=== PATIENT | female | born 1965 | race Two or more races ===

== ENCOUNTER 2024-03-02 13:57 | Outpatient (CLI) | payer BC, SELFPAY ==
[2024-03-01 18:40] LABS: Basophils # 0.1 K/mm3 (0-0.2); Basophils % 1.4 % (0.1-2.0); Eosinophils # 0.1 K/mm3 (0.0-0.4); Eosinophils % 2.1 % (0.1-12.0); Hemoglobin 14.8 g/dL (12.2-16.2); Lymphocytes # 1.9 K/mm3 (0.7-4.5); Lymphocytes % 36.4 % (10-50); Mean Corpuscular HGB Conc 32.3 g/dL (31.8-35.4); Mean Corpuscular Hemoglobin 32.7 pg (27.0-31.2); Mean Corpuscular Volume 101.2 fl (81-99); Mean Platelet Volume 9.3 fl (7.4-10.4); Monocytes # 0.3 K/mm3 (0.1-1.0); Monocytes % 6.3 % (1.7-9.3); Neutrophils # 2.8 K/mm3 (1.8-7.8); Neutrophils % 53.8 % (37.0-80.0); Platelet Count 268 K/mm3 (142-424); Red Blood Count 4.55 M/mm3 (4.20-5.40); Red Cell Distribution Width 13.1 % (11.5-17.5); White Blood Count 5.1 K/mm3 (4.8-10.8)
[2024-03-01 18:53] LABS: Alanine Aminotransferase 34 U/L (12-78); Albumin Level 4.5 g/dl (3.5-5.0); Albumin/Globulin Ratio 1.7 (1.1-1.8); Alkaline Phosphatase 105 U/L (38-126); Anion Gap 10.5 mEq/L (5-15); Aspartate Amino Transferase 36 U/L (14-36); Bilirubin,Total 0.8 mg/dl (0.2-1.3); Blood Urea Nitrogen 8 mg/dl (7-17); Calcium 9.7 mg/dl (8.4-10.2); Carbon Dioxide 25 mmol/L (22.0-30.0); Chloride 108 mmol/L (98-107); Chol/HDL Ratio 4.5 (1-3.5); Cholesterol 171 mg/dl (140-200); Estimated Glomerular Filt Rate 86 ml/min (>60); GFR (African American) 104 ML/MIN (>60); Globulin 2.7 g/dL (1.3-3.2); Glucose 95 mg/dl (74-100); HDL Cholesterol 38 mg/dl (40-60); Potassium 4.5 mmoL/L (3.5-5.1); Sodium 139 mmol/L (136-145); Total Protein,Serum 7.2 g/dl (6.3-8.2); Triglycerides 92 mg/dl (30-150); VLDL Cholesterol 18 mg/dL (0-40)
[2024-03-01 19:03] LABS: Direct LDL Cholesterol 91.43 mg/dL (100-129); Free T4 (Free Thyroxine) 1.03 ng/dl (0.78-2.19)
[2024-03-01 19:04] LABS: 25-OH Vitamin D, Total 48.9 ng/mL (30-100)
[2024-03-01 19:42] LABS: Hemoglobin A1C 5.3 % (4.0-6.0)
[2024-03-01 19:42] LABS: Vitamin B12 542 pg/mL (239-931)
[2024-03-01 20:14] LABS: Thyroid Stimulating Hormone 1.51 uIU/mL (0.465-4.68)
== END 2024-03-02 23:59 | disposition home or self-care (01) ==
LOC: LAB.DROPOF 13:58
PROVIDERS: PCP Nurse Practitioner; Visit Provider Nurse Practitioner
DX: E78.49 Other hyperlipidemia (principal); Z13.29 Encounter for screening for other suspected endocrine disorder; Z13.1 Encounter for screening for diabetes mellitus; E66.9 Obesity, unspecified; Z68.36 Body mass index [BMI] 36.0-36.9, adult; M25.561 Pain in right knee
CPT/HCPCS: 80053; 80061; 82306; 82607; 83036; 84439; 84443; 85025

== ENCOUNTER 2024-05-04 14:43 | Outpatient (CLI) | payer BC, SELFPAY ==
[2024-05-03 19:39] LABS: Alanine Aminotransferase 48 U/L (12-78); Albumin Level 4.6 g/dl (3.5-5.0); Albumin/Globulin Ratio 1.6 (1.1-1.8); Alkaline Phosphatase 116 U/L (38-126); Anion Gap 14.5 mEq/L (5-15); Aspartate Amino Transferase 35 U/L (14-36); Bilirubin,Total 0.6 mg/dl (0.2-1.3); Blood Urea Nitrogen 10 mg/dl (7-17); Calcium 9.6 mg/dl (8.4-10.2); Carbon Dioxide 26 mmol/L (22.0-30.0); Chloride 105 mmol/L (98-107); Estimated Glomerular Filt Rate 74 ml/min (>60); GFR (African American) 89 ML/MIN (>60); Globulin 2.8 g/dL (1.3-3.2); Glucose 93 mg/dl (74-100); Potassium 4.5 mmoL/L (3.5-5.1); Sodium 141 mmol/L (136-145); Total Protein,Serum 7.4 g/dl (6.3-8.2)
== END 2024-05-04 23:59 | disposition home or self-care (01) ==
LOC: LAB.DROPOF 14:44
PROVIDERS: PCP Nurse Practitioner; Visit Provider Nurse Practitioner
DX: E78.5 Hyperlipidemia, unspecified (principal); E66.9 Obesity, unspecified; Z68.34 Body mass index [BMI] 34.0-34.9, adult
CPT/HCPCS: 80053

== ENCOUNTER 2024-08-10 19:12 | Outpatient (CLI) | payer BC, SELFPAY ==
[2024-08-10 18:24] LABS: Basophils % 0.7 % (0.1-2.0); Eosinophils # 0.2 K/mm3 (0.0-0.4); Eosinophils % 2.9 % (0.1-12.0); Hematocrit 45.2 % (37.0-47.0); Hemoglobin 14.4 g/dL (12.2-16.2); Lymphocytes # 1.8 K/mm3 (0.7-4.5); Lymphocytes % 31.8 % (10-50); Mean Corpuscular HGB Conc 31.7 g/dL (31.8-35.4); Mean Corpuscular Hemoglobin 32.4 pg (27.0-31.2); Mean Corpuscular Volume 101.9 fl (81-99); Mean Platelet Volume 7.9 fl (7.4-10.4); Monocytes # 0.3 K/mm3 (0.1-1.0); Monocytes % 4.8 % (1.7-9.3); Neutrophils # 3.4 K/mm3 (1.8-7.8); Neutrophils % 59.8 % (37.0-80.0); Platelet Count 297 K/mm3 (142-424); Red Blood Count 4.44 M/mm3 (4.20-5.40); Red Cell Distribution Width 13.6 % (11.5-17.5); White Blood Count 5.6 K/mm3 (4.8-10.8)
[2024-08-10 19:00] LABS: Alanine Aminotransferase 33 U/L (12-78); Albumin Level 4.4 g/dl (3.5-5.0); Albumin/Globulin Ratio 1.4 (1.1-1.8); Alkaline Phosphatase 108 U/L (38-126); Anion Gap 11.7 mEq/L (5-15); Aspartate Amino Transferase 29 U/L (14-36); Bilirubin,Total 0.6 mg/dl (0.2-1.3); Blood Urea Nitrogen 9 mg/dl (7-17); Calcium 9.8 mg/dl (8.4-10.2); Carbon Dioxide 25 mmol/L (22.0-30.0); Chloride 105 mmol/L (98-107); Chol/HDL Ratio 5.4 (1-3.5); Cholesterol 207 mg/dl (140-200); Estimated Glomerular Filt Rate 74 ml/min (>60); GFR (African American) 89 ML/MIN (>60); Globulin 3.1 g/dL (1.3-3.2); Glucose 79 mg/dl (74-100); HDL Cholesterol 38 mg/dl (40-60); Potassium 4.7 mmoL/L (3.5-5.1); Sodium 137 mmol/L (136-145); Total Protein,Serum 7.5 g/dl (6.3-8.2); Triglycerides 133 mg/dl (30-150); VLDL Cholesterol 27 mg/dL (0-40)
[2024-08-10 19:12] LABS: Direct LDL Cholesterol 131.91 mg/dL (100-129)
[2024-08-10 19:17] LABS: Free T4 (Free Thyroxine) 1.42 ng/dl (0.78-2.19)
[2024-08-10 19:31] LABS: Thyroid Stimulating Hormone 1.21 uIU/mL (0.465-4.68)
[2024-08-10 19:50] LABS: Vitamin B12 541 pg/mL (239-931)
[2024-08-10 20:17] LABS: Hemoglobin A1C 5.1 % (4.0-6.0)
== END 2024-08-10 23:59 | disposition home or self-care (01) ==
LOC: LAB.DROPOF 19:12
PROVIDERS: PCP Nurse Practitioner; Visit Provider Nurse Practitioner
DX: E78.5 Hyperlipidemia, unspecified (principal); E66.9 Obesity, unspecified; Z68.30 Body mass index [BMI] 30.0-30.9, adult
CPT/HCPCS: 80050; 80053; 80061; 82306; 82607; 83036; 84439; 84443; 85025

== ENCOUNTER 2024-11-21 13:00 | Outpatient (CLI) | payer BC, SELFPAY ==
[2024-11-21 19:57] LABS: Alanine Aminotransferase 26 U/L (12-78); Albumin Level 4.8 g/dl (3.5-5.0); Albumin/Globulin Ratio 1.8 (1.1-1.8); Alkaline Phosphatase 115 U/L (38-126); Anion Gap 12.4 mEq/L (5-15); Aspartate Amino Transferase 30 U/L (14-36); Bilirubin,Total 1.1 mg/dl (0.2-1.3); Blood Urea Nitrogen 8 mg/dl (7-17); Carbon Dioxide 24 mmol/L (22.0-30.0); Chloride 104 mmol/L (98-107); Chol/HDL Ratio 5.2 (1-3.5); Cholesterol 208 mg/dl (140-200); Estimated Glomerular Filt Rate 74 ml/min (>60); GFR (African American) 89 ML/MIN (>60); Globulin 2.6 g/dL (1.3-3.2); Glucose 77 mg/dl (74-100); HDL Cholesterol 40 mg/dl (40-60); Potassium 4.4 mmoL/L (3.5-5.1); Sodium 136 mmol/L (136-145); Total Protein,Serum 7.4 g/dl (6.3-8.2); Triglycerides 152 mg/dl (30-150); VLDL Cholesterol 30 mg/dL (0-40)
[2024-11-21 20:26] LABS: Thyroid Stimulating Hormone 0.12 uIU/mL (0.465-4.68)
== END 2024-11-21 23:59 | disposition home or self-care (01) ==
LOC: LAB.DROPOF 11-23 13:01
PROVIDERS: PCP Nurse Practitioner; Visit Provider Nurse Practitioner
DX: E78.5 Hyperlipidemia, unspecified (principal); E66.3 Overweight; Z68.28 Body mass index [BMI] 28.0-28.9, adult
CPT/HCPCS: 80053; 80061; 84443

== ENCOUNTER 2025-02-14 19:44 | Outpatient (CLI) | payer BC, SELFPAY ==
[2025-02-14 21:06] LABS: Free T4 (Free Thyroxine) 1.47 ng/dl (0.78-2.19)
[2025-02-14 21:20] LABS: Thyroid Stimulating Hormone 0.05 uIU/mL (0.465-4.68)
[2025-02-16 03:36] LABS: Triiodothyronine (T3) Total 114 ng/dL (71-180)
== END 2025-02-14 23:59 | disposition home or self-care (01) ==
LOC: LAB.DROPOF 19:45
PROVIDERS: PCP Nurse Practitioner; Visit Provider Nurse Practitioner
DX: R79.89 Other specified abnormal findings of blood chemistry (principal)
CPT/HCPCS: 84439; 84443; 84480; 84481

== ENCOUNTER 2025-05-16 12:30 | Outpatient (CLI) | payer BC, SELFPAY ==
[2025-05-16 19:10] LABS: Alanine Aminotransferase 22 U/L (12-78); Albumin Level 4.6 g/dl (3.5-5.0); Albumin/Globulin Ratio 1.8 (1.1-1.8); Alkaline Phosphatase 112 U/L (38-126); Anion Gap 10.7 mEq/L (5-15); Aspartate Amino Transferase 26 U/L (14-36); Bilirubin,Total 0.8 mg/dl (0.2-1.3); Blood Urea Nitrogen 8 mg/dl (7-17); Calcium 10.1 mg/dl (8.4-10.2); Carbon Dioxide 28 mmol/L (22.0-30.0); Chloride 101 mmol/L (98-107); Estimated Glomerular Filt Rate 86 ml/min (>60); GFR (African American) 104 ML/MIN (>60); Globulin 2.6 g/dL (1.3-3.2); Glucose 82 mg/dl (74-100); Potassium 4.7 mmoL/L (3.5-5.1); Sodium 135 mmol/L (136-145); Total Protein,Serum 7.2 g/dl (6.3-8.2)
[2025-05-16 19:25] LABS: Free T4 (Free Thyroxine) 1.19 ng/dl (0.78-2.19)
[2025-05-16 19:38] LABS: Thyroid Stimulating Hormone 1.22 uIU/mL (0.465-4.68)
--- OUTSIDE RECORDS SUMMARY | 2025-05-17 12:28 | XMS_ITS | Clinical Summary ---
Author Organization [facility] Address [address] [place] [address] Phone Care Team Providers Care Manager Servicing Name Role Phone Saurav Martin MD Primary Care Provider + [phone] Allergies No known active allergies Medications * This document contains information received from the source organization and may not represent a complete record from that organization. diclofenac (VOLTAREN) 75 mg Oral Tablet, Delayed Release (E.C.) Take 1 Tablet by mouth 2 times daily as needed. Take 1 tablet by mouth twice daily as needed 60 Tablet 2 4 Active omeprazole (PRILOSEC) 40 mg Oral Capsule, Delayed Release(E.C.) Take 40 mg by mouth daily. 4 Active ZEPBOUND 10 mg/0.5 mL SubQ Pen Injector ADMINISTER 10 MG UNDER THE SKIN EVERY WEEK 5 Active estradiol-norethi ndrone (ACTIVELLA) 1-0.5 mg Oral TabletIndications :Well woman exam with routine gynecological exam Take 1 Tablet by mouth daily. 30 Tablet 11 5 Active Active Problems Problem Noted Date Diagnosed Date Osteoarthritis of right knee 05/23/2024 Cervical spinal stenosis 06/25/2021 Cervical spondylosis 06/25/2021 DDD (degenerative disc disease), cervical 2020 Neck pain 05/19/2021 Cervical radiculopathy 05/19/2021 GERD (gastroesophageal reflux disease) 8 Colon cancer screening 01/05/2018 Achilles tendonitis 07/22/2012 GERD (gastroesophageal reflux disease) 1 Immunizations Immunization Administration Dates Next Due Influenza Nasal, Unspecified Formulation 015 Influenza Patient Reported 08/30/2024,09/20/2014 ,08/29/2013 Influenza Vaccine, Unspecified Formulation 09/26 MMR 10/16/2014 Pfizer SARS-CoV-2 Vaccine 12 + Yrs (Purple Cap) 01/30/2021 Tdap 10/16/2014 Surgical History Surgery Date Site/Laterality Comments UPPER GASTROINTESTINAL ENDOSCOPY KNEE SURGERY 11/22/2000 - 11/21/2001 Left knee reconstruction COSMETIC SURGERY bump on eye removed UPPER GASTROINTESTINAL ENDOSCOPY 01/05/2018 N/A ESOPHAGOGASTRODUODENOSCOP Y with biopsy via forceps and COLONOSCOPY with polypectomy via hot snare; Surgeon: Jack Mascorro MD; Location: [facility]; Service: Endoscopy COLONOSCOPY 01/05/2018 N/A Surgeon: Jack Mascorro MD; Location: [facility]; Service: Endoscopy JOINT REPLACEMENT 11/22/2023 - 11/21/2024 Right Medical History Medical History Date Comments Heartburn Colon cancer screening 01/05/2018 GERD (gastroesophageal reflux disease) Family History Medical History Relation Name Comments Diabetes Father Simba Mares Breast Cancer Maternal Aunt 1 Sharri Klein Cancer Mother Monserrat Klein High Blood Pressure Mother Monserrat Klein Arthritis Paternal Aunt Anika Mares Diabetes Paternal Uncle Ross Mares Arthritis Sister Maria D Hernandez Diabetes Sister Maria D Hernandez Relation Name Status Comments Father Simba Mares Maternal Aunt 1 Harrell Klein Maternal Aunt 2 Alive Maternal Aunt 3 Alive Maternal Aunt 4 Alive Mother Monserrat Klein Paternal Aunt Anika Mares Paternal Uncle Ross Mares Sister Maria D Hernandez Social History Tobacco Use Types Packs/Day Years Used Date Smoking Tobacco: Former Cigarettes Q uit: 11/22/1986 Smokeless Tobacco: Never Alcohol Use Standard Drinks/Week Comments Yes 1 (1 standard drink = 0.6 oz pur e alcohol) social PHQ-2 Answer Date Recorded PHQ-2 Total Score 1 12/21/2023 Sexually Active Control Partners Comments Yes Post-menopausal Male Comments No Sex and Gender Information Value Date Recorded Sex Assigned at Not on file Legal Sex Female 8:40 AM EDT Gender Identity Not on file Sexual Orientation Not on file 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 Not on file Not on file N ot on file Obstetrics History Para Term AB IAB SAB Ectopic Multiple Livin g Live Births 0 0 Last Filed Vital Signs Vital Sign Reading Time Taken Comments Blood Pressure 124/84 02/13/2025 11:05 AM EDT Pulse 80 01/01/2025 8:13 AM EST Temperature 36.6 C (97.9 F) 01/01/2025 8:13 AM EST Respiratory Rate 20 06/13/2024 7:38 AM EDT Oxygen Saturation 98% 01/01/2025 8:13 AM EST Inhaled Oxygen Concentration - - Weight 80 kg (176 lb 4.8 oz) 02/13/2025 11:05 AM EDT Height 165.1 cm (5' 5 ) 02/13/2025 11:05 AM EDT Body Mass Index 29.34 02/13/2025 11:05 AM EDT Plan of Treatment Upcoming Encounters Date Type Department Care Team (Late st Contact Info) Description 06/05/2025 2:30 PM EDT [facility] S[facility] Lumber Straightener [address] [place] [address] Jarrod Celeste MD [address] [place] [address] 06/08/2025 2:15 PM EDT Office Visit [facility] Sleep Medicine [address] [place] [address] Niru Machado, RAIL EXPRESS CLERK [address] [facility] [address] [place] [address] Health Maintenance Due Date Last Done Comments Hepatitis B Vaccine (1 of 3 - 19+ 3-dose series) 1985 Cologuard 2011 FIT 2011 Sigmoidoscopy 2011 Virtual Colonography 2011 Pneumococcal Vaccine 50+ (1 of 1 - PCV) 2016 Zoster (1 of 2) 2016 COVID-19 Vaccine (4 - season) 2024 05/12/2022, 02/20/2021, 01/30/2021 DTaP/TDaP/Td (2 - Td or Tdap) 10/16/2024 10/16/2014 Annual Wellness Exam 01/01/2026 01/01/2025, 10/15/2020, 08/15/2014 Breast Cancer Screening 01/17/2027 01/17/20, 01/03/2024, 01/17/2021, Additional history exists Pap Smear 02/14/2028 02/13/2025, 01/20, 01/17/2016, Additional history exists Cervical Cancer Screening 02/13/2030 HPV/Pap Cotest 02/13/2030 02/13/2025 Colon Cancer Screening 04/02/2031 Colonoscopy 04/02/2031 04/03/2024, 01/05/2018 Influenza Vaccine Completed 08/30/2024, , 09/26/2020, Additional history exists Meningococcal B Vaccine Aged Out No l onger eligible based on patient's age to complete this topic Goals Goal Patient Goal Type Associated Problems Recent Progress Patient-Stated? Author Maintain a healthy diet, exercise regularly and maintain an ideal body weight General No Genoveva Moore RMA Stay Tobacco Free Lifestyle No Genoveva Moore RMA Procedures Procedure Name Priority Date/Time Associated Diagnosis Comments HELPER METAL HANGING CYTOLOGY REQUEST (PAP ONLY) Routine 02/13/2025 11:31 AM EDT Well woman exam with routine gynecological exam Cervical cancer screening Screening for HPV (human papillomavirus) MM MAMMO DIGITAL CAROL SCREEN BILAT Routine 01/17/2025 12:51 PM EST Encounter for screening mammogram for malignant neoplasm of breast COLONOSCOPY Routine 04/03/2024 11:04 AM EDT Personal history of colonic polyps from Last 3 Months or Most Recently Relevant to Health Maintenance Results * HELPER METAL HANGING CYTOLOGY REQUEST (PAP ONLY) (02/13/2025 11:31 AM EDT) CASE REPORT Gynecologic Cytology Report Case: [id number] Authorizing Provider: Saurav Van MD Collected: 02/13/2025 1131 Ordering Location: [facility] Edg Received: 02/13/2025 1131 First Screen: Kati Julien CT Specimen: LIQUID-BASED PAP - CERVICAL/ENDOCERV ICAL, Cervix, Endocervical 02/15/2025 10:32 AM EDT [facility] PAP FINAL DIAGNOSIS Negative for intraepithelial lesion or malignancy 02/15/2025 10:32 AM EDT [facility] at 1032 EDT MICROSCOPIC DESCRIPTION Microscopic examination is performed and the findings corroborate the diagnosis. 02/15/2025 10:32 AM EDT [facility] PAP SMEAR ADEQUACY Satisfactory for evaluation 02/15/2025 10:32 AM EDT [facility] ENDOCERVICAL T-ZONE Transformation Zone Absent. This is not unusual in a post-menopausal woman. 02/15/2025 10:32 AM EDT [facility] EMBEDDED IMAGES 10:32 AM EDT [facility] PAP DISCLAIMER The Pap Smear is a screening test that aids in the detection of cervical cancer and cancer precursors. Both false positive and false negative results can occur. The test should be used at regular intervals, and positive results should be confirmed before definitive therapy. Processed using the ThinPrep Television Servicer Automated cytology screening device ([place]). 02/15/2025 10:32 AM EDT [facility] Thin Prep ENDOCERVICAL STRUCTURE / Unknown 02/13/2025 11:31 AM EDT 02/13/2025 11:31 AM EDT us Saurav Van MD CYTOLOGY ORDERABLES Final Resul t [facility] [address] [place], [place] [id number] * MM MAMMO DIGITAL CAROL SCREEN BILAT (01/17/2025 12:51 PM EST) Anatomical Region Laterality Modality Breast Bilateral Mammography 01/17/2025 12:5 1 PM EST Impressions 01/17/2025 4:14 PM EST Negative ([id number]-[id number]-5) RECOMMENDATION: Routine Screening Mammogram in 1 Year Bilateral . . COMMENTS: Narrative 01/17/2025 4:14 PM EST EXAM: MM MAMMO DIGITAL CAROL SCREEN BILAT EXAM DATE: 01/17/2025 12:51 PM INDICATION: Z12.31-Encounter for screening mammogram for malignant neoplasm of cojxdu-YYP-87-CM COMPARISON STUDIES: Compared with prior studies the most recent being 01/03/2024 MM MAMMO DIGITAL CAROL SCREEN BILAT at [facility] 01/17/2021 MM MAMMO DIGITAL SCREENING W CAD BILAT at [facility] 12/14/2019 MM MAMMO DIGITAL SCREENING W CAD BILAT at [facility] TISSUE DENSITY: The breasts are heterogeneously dense, which may obscure small masses. FINDINGS: No mammographic evidence of malignancy. . Procedure Note Jolie Camacho MD - 01/17/2025 EXAM: MM MAMMO DIGITAL CAROL SCREEN BILAT EXAM DATE: 01/17/2025 12:51 PM INDICATION: Z12.31-Encounter for screening mammogram for malignantneoplasm of eckrtd-CJT-34-CM COMPARISON STUDIES: Compared with prior studies the most recent being 01/03/2024 MM MAMMO DIGITAL CAROL SCREEN BILAT at [facility] 01/17/2021 MM MAMMO DIGITAL SCREENING W CAD BILAT at [facility] 12/14/2019 MM MAMMO DIGITAL SCREENING W CAD BILAT at [facility] TISSUE DENSITY: The breasts are heterogeneously dense, which may obscuresmall masses. FINDINGS: No mammographic evidence of malignancy. . IMPRESSION: Negative (HFD-Pyvqminw-2) RECOMMENDATION: Routine Screening Mammogram in 1 Year Bilateral . . COMMENTS: Saurav Van MD IMG MAMMOGRAPHY ORDERABLES Shruthi l Result * COLONOSCOPY (04/03/2024 11:04 AM EDT) Anatomical Region Laterality Modality Endoscopy Narrative 04/03/2024 11:03 AM EDT Table formatting from the original result was not included. Findings One sessile, adenomatous-appearing polyp measuring 5-9 mm in the ascending colon; performed cold snare with complete en bloc removal and retrieved specimen Recommendation Await pathology results Repeat colonoscopy in 7 years, due: 04/02/2031 Indication Personal history of colonic polyps Staff Staff Role Chelsi Charles RN Director Traffic And Planning Ruddy Cadet DO Performing Provider AYDEE Myrick CRNA, MD Anesthesiologist Medications See Anesthesia Record. Preprocedure A history and physical has been performed, and patient medication allergies have been reviewed. The patient's tolerance of previous anesthesia has been reviewed. The risks and benefits of the procedure and the sedation options and risks were discussed with the patient. All questions were answered and informed consent obtained. ASA 2 - Patient with mild systemic disease Details of the Procedure The patient underwent monitored anesthesia care, which was administered by an anesthesia professional. The patient's blood pressure, heart rate, level of consciousness, oxygen, respirations, ECG and ETCO2 were monitored throughout the procedure. A digital rectal exam was performed. The scope was introduced through the anus and advanced to the cecum. Retroflexion was performed in the rectum. Bowel prep was adequate. The patient experienced no blood loss. The procedure was not difficult. The patient tolerated the procedure well. There were no apparent adverse events. Patient provided education and educated on specific discharge instructions. Patient educated on medications given during the procedure and new medications for discharge. Patient verbalizes understanding of discharge education. Patient stable and awaiting transport for discharge. Events Procedure Events Event Event Time ENDO SCOPE IN TIME 04/03/2024 10:47 AM ENDO CECUM REACHED 04/03/2024 10:52 AM ENDO SCOPE OUT TIME 04/03/2024 11:01 AM Specimens ID Type Source Tests Collected by Time 1 : Ascending colon polyp via cold snare Tissue Large Intestine, Right/Ascending Colon PATHOLOGY TISSUE REQUEST Ruddy Cadet DO 04/03/2024 1055 Anesthesia Event Time In Patient In - Proc. Room 10:33 AM Ruddy Cadet DO ENDOSCOPY PROCEDURE ORDERABLE S Final Result from Last 3 Months or Most Recently Relevant to Health Maintenance Insurance ANTHEM PPO ANTHEM PPO [place] [address] [address] PPO Care Teams Manager Servicing Relationship Specialty Start Date End Date Saurav Martin MD [address] [address] PCP - General 09/22/10
--- OUTSIDE RECORDS SUMMARY | 2025-05-17 12:28 | XMS_ITS | Clinical Summary ---
Author Organization [facility] Address [address] [place] [address] Care Team Providers Care Career Specialist Name Role Phone Saurav Martin MD Primary Care Provider Allergies No known active allergies Medications omeprazole (PriLOSEC) 40 mg Capsule, Delayed Release(E.C.) Take 40 mg by mouth daily. 4 Active diclofenac (VOLTAREN) 75 mg EC tablet Take 75 mg by mouth 2 times daily as needed. 4 Active Cholecalciferol, Vitamin D3, 25 mcg (1,000 unit) Capsule Take 2 Capsules by mouth daily. Active tirzepatide, weight loss, (Zepbound) 7.5 mg/0.5 mL Pen Injector 7.5 mg by Subcutaneous route once weekly. Sundays Active OTHER - SEE EPIC ADMIN INSTRUCTIONS Take 0.5 Tablets by mouth nightly. Hormone replacement tablet Active docusate sodium (COLACE) 100 mg capsule Take 1 Capsule (100 mg) by mouth 2 times daily as needed for Constipation. 30 Capsule 06/08/2024 3:01 PM EDT 4 Active Active Problems Problem Noted Date Diagnosed Date Primary osteoarthritis of right knee 05/11/2024 Family History Medical History Relation Name Comments Anesthesia Complications Neg Hx Heart Problems Neg Hx Social History Tobacco Use Types Packs/Day Years Used Date Smoking Tobacco: Former Cigarettes Q uit: 2001 Smokeless Tobacco: Never Tobacco Cessation:Counseling Given: Not Answered Alcohol Use Standard Drinks/Week Comments Yes 1 (1 standard drink = 0.6 oz pur e alcohol) Comments No Sex and Gender Information Value Date Recorded Sex Assigned at Female 05/23/2024 3:04 PM EDT Legal Sex Female 11:25 AM EDT Gender Identity Female 05/23/2024 3:04 PM EDT Sexual Orientation Straight 05/23/2024 3: 04 PM EDT Last Filed Vital Signs Vital Sign Reading Time Taken Comments Blood Pressure 129/87 06/08/2024 1:45 PM EDT Pulse 91 06/08/2024 1:45 PM EDT Temperature 37 C (98.6 F) 06/08/2024 1:30 PM EDT Respiratory Rate 16 06/08/2024 1:45 PM EDT Oxygen Saturation 97% 06/08/2024 1:45 PM EDT Inhaled Oxygen Concentration - - Weight 92 kg (202 lb 13.2 oz) 06/08/2024 9:25 AM EDT Height 167.6 cm (5' 6 ) 06/08/2024 9:25 AM EDT Body Mass Index 32.74 06/08/2024 9:25 AM EDT Plan of Treatment Health Maintenance Due Date Last Done Comments Cologuard 1966 FIT 1966 Cervical Cancer Screening 1987 Pneumococcal Vaccine: 50+ Ye ars (1 of 1 - PCV) 2016 Zoster-RZV(Shingrix) (1 of 2) 2016 COVID-19 Vaccine (1 - 2023-2 5 season) 2024 Tetanus Vaccination (Every 1 0 Years) 10/16/2024 10/16/2014 BMI Counseling 11/22/2024 Depression Screening 11/22/2024 Influenza Vaccination (Seaso n Ended) 2025 Breast Cancer Screening 01/03/2026 01/03/20, 01/03/2024, 01/17/2021, Additional history exists Lipid Screening 12/15/2028 12/15/2023 Colonoscopy 04/03/2034 04/03/2024 Colorectal Cancer Screening 04/03/2034 Medical Devices Implanted Type Area Eggs Inspector Device Identifier Shelf Expiration Date Model / Serial / Lot Cement Bone Simplex Hv - [id number] Implanted:Qty: 1 on 06/08/2024 by Jarrod Celeste MD at [facility] Right: Knee [employer] 07/22/2025 [id number] / / [id number] Cruciate Retaining Sz7 - [id number] Implanted:Qty: 1 on 06/08/2024 by Jarrod Celeste MD at [facility] Right: Knee [employer] \T\ [employer] [id number] 03/21/2034 [id number] / / [id number] Attune Tib Base Affx Bear Sz 5 - [id number] Implanted:Qty: 1 on 06/08/2024 by Jarrod Celeste MD at [facility] Right: Knee [employer] \T\ [employer] [id number] 04/21/2034 [id number] / / [id number] Attune Patella Medialized Anatomic 38mm Cemented Aox - [id number] Implanted:Qty: 1 on 06/08/2024 by Jarrod Celeste MD at [facility] Right: Knee * J \T\ J [employer] [id number] 02/19/2029 [id number] / / [id number] Tibial Insert Fixed Bearing Sz7 - [id number] Implanted:Qty: 1 on 06/08/2024 by Jarrod Celeste MD at [facility] Right: Knee [employer] \T\ [employer] [id number] 01/20/2032 [id number] / / [id number] - [id number] Implanted:Qty: 1 on 06/08/2024 by Jarrod Celeste MD at [facility] Right: Knee [employer] \T\ [employer] [id number] / / Insurance ANTHAROLDO Member Subscriber Plan / Payer (Ef fective 2023-Present) Name:Anika Rock Relation to Subscriber:Self Name:Anika Rock Payer ID:[id number] (NAIC) Type:PPO Address: [facility] [id number] [place] [id number] Care Teams Career Specialist Relationship Specialty Start Date End Date Saurav Martin MD [address] [place] [address] PCP - General Internal Medicine 06/08/24
--- OUTSIDE RECORDS SUMMARY | 2025-05-17 12:28 | XMS_ITS | Encounter Summary ---
Author Organization [facility] [place] [address] Care Team Providers Care Recoverer Name Role Phone Saurav Martin MD Primary Care Provider + [phone] Encounter Details Date Type Department Care Team (Late st Contact Info) Description 10/25/2012 Orders Only [facility] [address] [facility] [address] [place] [address] Roby Benson MD Social History Tobacco Use Types Packs/Day Years Used Date Smoking Tobacco: Never Smokeless Tobacco: Never Alcohol Use Standard Drinks/Week Comments No 0 (1 standard drink = 0.6 oz pur e alcohol) occasional Comments No Sex and Gender Information Value Date Recorded Sex Assigned at Not on file Legal Sex Female 8:40 AM EDT Gender Identity Not on file Sexual Orientation Not on file documented as of this encounter Plan of Treatment Upcoming Encounters Date Type Department Care Team (Late st Contact Info) Description 06/05/2025 2:30 PM EDT Office Visit [facility] [address] [place] [address] Jarrod Celeste MD [address] [place] [address] 06/08/2025 2:15 PM EDT Office Visit [facility] [address] [place] [address] Niru Machado, PORTAINER OPERATOR [address] [facility] [address] [place] [address] documented as of this encounter Procedures Procedure Name Priority Date/Time Associated Diagnosis Comments GMED EGD Routine 10/25/2012 12:00 AM EST documented in this encounter Results * [facility]ED EGD (10/25/2012 12:00 AM EST) 10/25/2012 Impressions [facility] - 10/25/2012 10:54 AM EST Irregular Z line ?healed erosion in the lower third of the esophagus compatible with reflux esophagitis Stenosis of the cricopharyngeus (dilation) Otherwise normal EGD to second part of the duodenum Narrative [facility] - 10/25/2012 10:54 AM EST Performing Provider: Roby Benson M.D. Referring Provider: Saurav Martin MD us Roby Benson MD GI PROCEDURE ORDERABLES Shruthi l Result [facility] [address] [facility] [address] [address] documented in this encounter Visit Diagnoses Not on filedocumented in this encounter Care Teams Recoverer Relationship Specialty Start Date End Date Saurav Martin MD [address] [facility] [address] [place] [address] PCP - General 09/22/10 documented as of this encounter
--- OUTSIDE RECORDS SUMMARY | 2025-05-17 12:28 | XMS_ITS | Encounter Summary ---
Author Organization [facility] Address [address] [place] [address] Care Team Providers Care Screen Making Technician Name Role Phone Saurav Martin MD Primary Care Provider [phone] Encounter Details Date Type Department Care Team (Late st Contact Info) Description 06/02/2024 Preop Surgical Orders Counts Include [facility] Physician Ordering Department [address] [place] [address] Jarrod Celeste MD [address] [place] [address] [address] [place] [address] Social History Tobacco Use Types Packs/Day Years Used Date Smoking Tobacco: Former Cigarettes Q uit: 2001 Smokeless Tobacco: Never Alcohol Use Standard Drinks/Week Comments Yes 1 (1 standard drink = 0.6 oz pur e alcohol) Comments Unknown Sex and Gender Information Value Date Recorded Sex Assigned at Female 05/23/2024 3:04 PM EDT Legal Sex Female 11:25 AM EDT Gender Identity Female 05/23/2024 3:04 PM EDT Sexual Orientation Straight 05/23/2024 3: 04 PM EDT documented as of this encounter Plan of Treatment Not on file documented as of this encounter Visit Diagnoses Not on filedocumented in this encounter Care Teams Screen Making Technician Relationship Specialty Start Date End Date Saurav Martin MD [address] [place] [address] PCP - General Internal Medicine 06/08/24 documented as of this encounter
[2025-05-19 03:36] LABS: Triiodothyronine (T3) Total 133 ng/dL (71-180)
== END 2025-05-16 23:59 | disposition home or self-care (01) ==
LOC: LAB.DROPOF 05-17 12:26
PROVIDERS: PCP Nurse Practitioner; Visit Provider Nurse Practitioner
DX: E66.9 Obesity, unspecified (principal); R79.89 Other specified abnormal findings of blood chemistry
CPT/HCPCS: 80053; 84439; 84443; 84480; 84481

== ENCOUNTER 2025-08-14 09:43 | Outpatient (CLI) | payer BC, SELFPAY ==
--- OUTSIDE RECORDS SUMMARY | 2024-06-24 05:00 | XMS_ITS ---
Author Organization [facility] Address [address] [place] [address] Care Team Providers Care Unit Supervisor Name Role Phone Migration, Provider Unavailable Unavailable [...] weekly or less) Travel outside of the [place]: Travel History: Uses seat belts Encounters Encounter Location Date Provider Diagnosis [facility] [address] [place] [address] 06/24/2024 Provider Migration Plan Of Treatment No Information Progress Notes * Anika GILLIAMDOB:[birth year] (59 yo F)Acc No.[id number]:06/24/2024 Patient: Debbi POON Anika BRIAN :1965 A ge:58 Y S ex:Female [facility] [address] Subjective: * Chief Complaints: * Medical History: 7 [place]: Bone Density/DEXA Scan - Yes 2017 WNL 7 [place]: Sexually active - Yes 7 [place]: Last Pap Smear Dec 2015 7 [place]: Self breast exam- yes 7 [place]: Dairy Product Use - Yes 7 [place]: Mammogram Dec 2015 < 20% Lifetime Risk of Breast Cancer *PS - POS GERD Anxiety * 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
--- OUTSIDE RECORDS SUMMARY | 2025-06-28 15:15 | XMS_ITS | Encounter Summary ---
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 Answer Date of Assessment Author No 12/21/2023 3:01 PM Malgorzata Leon MA * Is the person blind or does he/she have serious difficulty seeing even when wearing glasses? Answer Date of Assessment Author No 12/21/2023 3:01 PM Malgorzata Leon MA * Does this person have serious difficulty walking or climbing stairs? Answer Date of Assessment Author No 12/21/2023 3:01 PM Malgorzata Leon MA * Does this person have difficulty dressing or bathing? Answer Date of Assessment Author No 12/21/2023 3:01 PM Malgorzata Leon MA * Because of a physical, mental or emotional condition, does this person have difficulty doing errands alone such as visiting a doctor's office or shopping? Answer Date of Assessment Author No 12/21/2023 3:01 PM Malgorzata Leon MA documented as of this encounter Mental Status * Because of a physical, mental or emotional condition, does this person have serious difficulty concentrating, remembering or making decisions? Answer Entry Date Author No 12/21/2023 3:01 PM Malgorzata Leon MA documented in this encounter Progress Notes * Sterling Moya APRN - 06/28/2025 3:15 PM EDT Images from the original note were not included. Follow-Up Visit 06/28/2025 Sterling Moya APRN MEDICAL DECISION MAKING Sleep Medicine Diagnoses 1. Obstructive sleep apnea 2. Tiredness Treatment Options Based upon my clinical evaluation, sleep study and other diagnostic study results as described below, I recommend: VIET - controlled on PAP therapy. Continue APAP 5-20; median 9. PSG/notes reviewed with moderate VIET; RDI 19.9 with disproportionate hypoxia (67%) Tiredness - improved with PAP therapy. Do not drive sleepy DME RX - ATI F/u in 1 year The patient understands and agrees with this treatment plan. Patient Active Problem List Diagnosis GERD (gastroesophageal reflux disease) Achilles tendonitis GERD (gastroesophageal reflux disease) Colon cancer screening Neck pain Cervical radiculopathy Cervical spinal stenosis Cervical spondylosis DDD (degenerative disc disease), cervical Osteoarthritis of right knee INTERVAL HISTORY Anika Valderrama is a 59 y.o. female here today for follow-up of loud snoring and sleep apnea. Since her last visit she is using and has benefited from PAP Wears cushion mask, heated hose. No c/o dryness. Compliance not fully met; skin irritation unable to tolerate mask at all times. 0.9 AHI - Past Medical, Family and Social histories were reviewed and updated. There have been no changes except as noted. 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 Take 1 tablet by mouth twice daily as needed 60 Tablet 2 estradiol-norethindrone (ACTIVELLA) 1-0.5 mg Oral Tablet Take 1 Tablet by mouth daily. 30 Tablet 11 omeprazole (PRILOSEC) 40 mg Oral Capsule, Delayed Release(E.C.) Take 40 mg by mouth daily. ZEPBOUND 10 mg/0.5 mL SubQ Pen Injector ADMINISTER 10 MG UNDER THE SKIN EVERY WEEK No current facility-administered medications for this visit. EXAMINATION Vital Blood Pressure: Signs Pulse: Constitutional Anika is alert, well developed, well nourished, in no acute distress Head-Eyes normocephalic, atraumatic, sclera clear, PERRL, EOMI Nose Mouth Modified Mallampati Score Dentition Jaw Neck supple with midline trachea, no tenderness, no JVD Respiratory Normal airflow Cardiac S1, S2 normal; no murmur, rub or gallop; regular rate and rhythm Abdomen round Musculoskeletal- NeuroPsych no focal neurological deficits, affect appropriate, and alert, oriented x3 Extremities no cyanosis, clubbing or edema DATA REVIEWED (I have reviewed all data listed below) Most Recent Diagnostic PSG No data recorded RDI: 19.9 (06/28/2025 2:00 PM) No data recorded No data recorded No data recorded No data recorded No data recorded Most Recent PAP Settings No data recorded No data recorded No data recorded No data recorded No data recorded VPAP Range: 5-20 (06/28/2025 2:00 PM) PAP Compliance -- I have reviewed and verified her PAP machine compliance Days Used > 4 hours (%): 59 % (06/28/2025 2:00 PM) Number of Days Assessed: 215 (06/28/2025 2:00 PM) [place] Sleepiness Scale No data recorded, > 10 indicates Excessive Daytime Sleepiness Lab Results Component Value Date/Time TSH 1.900 09/06/2013 09:07 AM TSHREFLEX 1.990 12/27/2024 07:26 AM TSHREFLEX 1.260 08/16/2015 10:19 AM GLU 84 12/27/2024 07:26 AM GLU 86 08/16/2015 10:19 AM BUN 8 12/27/2024 07:26 AM BUN 15 08/16/2015 10:19 AM CREATININE 0.75 12/27/2024 07:26 AM CREATININE 0.88 08/16/2015 10:19 AM NA 138 12/27/2024 07:26 AM NA 141 08/16/2015 10:19 AM K 4.4 12/27/2024 07:26 AM K 4.7 08/16/2015 10:19 AM CL 103 12/27/2024 07:26 AM CL 102 08/16/2015 10:19 AM CO2 23 12/27/2024 07:26 AM CO2 21 (L) 08/16/2015 10:19 AM ALT 24 12/27/2024 07:26 AM ALT 24 08/16/2015 10:19 AM AST 25 12/27/2024 07:26 AM AST 29 08/16/2015 10:19 AM ALKPHOS 119 12/27/2024 07:26 AM ALKPHOS 92 08/16/2015 10:19 AM Lab Results Component Value Date/Time WBC 4.5 12/27/2024 07:26 AM WBC 7.3 08/16/2015 10:19 AM HGB 13.2 12/27/2024 07:26 AM HGB 14.7 08/16/2015 10:19 AM HCT 39.7 12/27/2024 07:26 AM HCT 42.8 08/16/2015 10:19 AM PLT 279 12/27/2024 07:26 AM PLT 242 08/16/2015 10:19 AM documented in this encounter Plan of Treatment Upcoming Encounters Date Type Department Care Team (Late st Contact Info) Description 07/11/2026 3:15 PM EDT Office Visit [facility] [place] [address] [place] [address] [address] [place] [address] Sterling Moya APRN [address] [place] [address] documented as of this encounter Goals Goal Patient Goal Type Associated Problems Recent Progress Patient-Stated? Author Maintain a healthy diet, exercise regularly and maintain an ideal body weight General No Genoveva Moore RMRonna Stay Tobacco Free Lifestyle No Genoveva Moore RMRonna documented as of this encounter Visit Diagnoses Diagnosis Obstructive sleep apnea- Primary Obstructive sleep apnea (adult) (pediatric) Tiredness Other malaise and fatigue documented in this encounter Additional Health Concerns Assessment Noted Time PHQ-9 Depression Total Score: 1 12/21/19 24 3:01 PM EST PHQ-2 Depression Total Score: 1 12/21/19 3:01 PM EST documented as of this encounter Care Teams Presser And Blocker Knitted Goods Relationship Specialty Start Date End Date Saurav Maritn MD [address] [facility] [address] [place] [address] PCP - General 09/22/10 documented as of this encounter
[2025-08-14 15:44] LABS: Hematocrit 40.3 % (37.0-47.0); Hemoglobin 13.4 g/dL (12.2-16.2); Immature Granulocytes % 0.2 %; Mean Corpuscular HGB Conc 33.3 g/dL (31.8-35.4); Mean Corpuscular Hemoglobin 31.9 pg (27.0-31.2); Mean Corpuscular Volume 96.0 fl (81-99); Nucleated Red Blood Cells % 0 %; Platelet Count 274 K/mm3 (142-424); Red Blood Count 4.20 M/mm3 (4.20-5.40); Red Cell Distribution Width-SD 47.8 fL; White Blood Count 5.0 K/mm3 (4.8-10.8)
[2025-08-14 16:23] LABS: Albumin Level 4.6 g/dl (3.5-5.0); Chloride 105 mmol/L (98-107); Potassium 4.9 mmoL/L (3.5-5.1); Sodium 140 mmol/L (136-145)
[2025-08-14 16:26] LABS: Alanine Aminotransferase 19 U/L (12-78); Albumin/Globulin Ratio 1.8 (1.1-1.8); Alkaline Phosphatase 98 U/L (38-126); Anion Gap 13.9 mEq/L (5-15); Aspartate Amino Transferase 30 U/L (14-36); Bilirubin,Total 0.9 mg/dl (0.2-1.3); Blood Urea Nitrogen 10 mg/dl (7-17); Calcium 9.7 mg/dl (8.4-10.2); Carbon Dioxide 26 mmol/L (22.0-30.0); Cholesterol 187 mg/dl (140-200); Creatinine,Serum 0.80 mg/dl (0.52-1.04); Estimated Glomerular Filt Rate 74 ml/min (>60); GFR (African American) 89 ML/MIN (>60); Globulin 2.6 g/dL (1.3-3.2); Glucose 90 mg/dl (74-100); Total Protein,Serum 7.2 g/dl (6.3-8.2); Triglycerides 135 mg/dl (30-150)
[2025-08-14 16:27] LABS: HDL Cholesterol 50 mg/dl (40-60)
[2025-08-14 17:18] LABS: Hepatitis C Ab Qual. W/ RFX NEGATIVE (Negative)
[2025-08-15 08:27] LABS: Hepatitis B Surface Antigen Negative (Negative)
--- OUTSIDE RECORDS SUMMARY | 2025-08-15 09:40 | XMS_ITS | Encounter Summary ---
Author Organization [place] [address] Care Team Providers Care Mental Health Director Name Role Phone Saurav Martin MD Primary Care Provider + [phone] Reason for Referral * Durable Medical Equipment (Routine) - Pending Review Specialty Diagnoses / Procedures Referred By Contac t Referred To Contact Diagnoses Obstructive sleep apnea Procedures AMB [facility] CPAP DME Sterling Moya APRN [address] [place] [address] Phone: tel: fax: Referral ID Status Reason Start Date Expiration Date V isits Requested Visits Authorized [id number] Pending Review 06/28/2025 06/28/2026 1 1 Encounter Details Date Type Department Care Team (Late st Contact Info) Description 06/28/2025 Orders Only [facility] [address] [place] [address] Sterling Moya APRN [address] [place] [address] Obstructive sleep apnea (Primary Dx) Social History Tobacco Use Types Packs/Day Years [...] 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 Author Maintain a healthy diet, exercise regularly and maintain an ideal body weight General No Genoveva Moore RMA Stay Tobacco Free Lifestyle No Genoveva Moore RMA documented as of this encounter Visit Diagnoses Diagnosis Obstructive sleep apnea- Primary Obstructive sleep apnea (adult) (pediatric) documented in this encounter Orders Nursing Count Last Ordered Date First Orde red Date AMB SE[facility] CPAP DME 1 06/28/2025 documented in this encounter Additional Health Concerns Assessment Noted Time PHQ-9 Depression Total Score: 1 12/21/19 24 3:01 PM EST PHQ-2 Depression Total Score: 1 12/21/19 24 3:01 PM EST documented as of this encounter Care Teams Mental Health Director Relationship Specialty Start Date End Date Saurav Martin MD [address] [place] [address] PCP - General 09/22/10 documented as of this encounter
--- OUTSIDE RECORDS SUMMARY | 2025-08-15 09:41 | XMS_ITS | Encounter Summary ---
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 Author Maintain a healthy diet, exercise regularly and maintain an ideal body weight General No Genoveva Moore RMA Stay Tobacco Free Lifestyle No Genoveva Moore RMA documented as of this encounter Visit Diagnoses Not on filedocumented in this encounter Additional Health Concerns Assessment Noted Time PHQ-9 Depression Total Score: 1 12/21/19 24 3:01 PM EST PHQ-2 Depression Total Score: 1 12/21/19 24 3:01 PM EST documented as of this encounter Care Teams Statistical Programmer Analyst Relationship Specialty Start Date End Date Saurav Martin MD [address] [place] [address] PCP - General 09/22/10 documented as of this encounter
--- OUTSIDE RECORDS SUMMARY | 2025-08-15 09:41 | XMS_ITS | Encounter Summary ---
Author Organization [facility] Address [address] [place] [address] Care Team Providers Care Rotary Drum Dyer Name Role Phone Saurav Martin MD Primary Care Provider [phone] Encounter Details Date Type Department Care Team (Late st Contact Info) Description 06/02/2024 Preop Surgical Orders Community Physician Ordering Department [address] [place] [address] Jarrod Celeste MD [address] [place] [address] [address] [place] [address] Social History Tobacco Use Types Packs/Day Years [...] on filedocumented in this encounter Care Teams Rotary Drum Dyer Relationship Specialty Start Date End Date Saurav Martin MD [address] [place] [address] PCP - General Internal Medicine 06/08/24 documented as of this encounter
--- OUTSIDE RECORDS SUMMARY | 2025-08-15 09:41 | XMS_ITS | Patient Health Record ---
Author Organization [facility] Address [address] [facility] [address] [place] [address] Care Team Providers Care Smoke And Flame Specialist Name Role Phone Migration, Provider Unavailable Unavailable Allergies Allergen (clinical drug ingredient) Drug/Non Drug Allergy documented on EMR Reaction Allergy Type Onset Date Status Medications: NO KNOWN ALLERGIES (uncoded) Unspecified Allergy Active Reason For Referral No Information Medications Medication SIG (Take, Route, Frequency, Duration) [...] weekly or less) Travel outside of the [place]: Travel History: Uses seat belts Plan Of Treatment No Information Medical (General) History Medical History History ICD Code 7 [place]: Bone Density/DEXA Scan - Yes 20 17 WNL 7 [place]: Sexually active - Yes 7 [place]: Last Pap Smear Dec 2015 7 [place]: Self breast exam- yes 7 [place]: Dairy Product Use - Yes 7 [place]: Mammogram Dec 2015 < 20% Lifetime Risk of Breast Cancer *PS - POS GERD Anxiety Surgical History Surgery Date(Month/Year) Knee surgery 2000- left knee
--- OUTSIDE RECORDS SUMMARY | 2025-08-15 09:41 | XMS_ITS | Encounter Summary ---
Author Organization [place] [address] Care Team Providers Care Vessel Scrapper Name Role Phone Saurav Martin MD Primary Care Provider + [phone] Encounter Details Date Type Department Care Team (Late st Contact Info) Description 10/25/2012 Orders Only [facility] [address] [facility] [address] [place] [address] Roby Benson MD Social History Tobacco Use [...] PM EDT Office Visit [facility] [address] [place] [address] Sterling Moya, INSTALLER [address] [place] [address] documented as of this encounter Procedures Procedure [...] to second part of the duodenum Narrative [facility] - 10/25/2012 10:54 AM EST Performing Provider: Roby Benson M.D. Referring Provider: Saurav Martin MD us Roby Benson MD GI PROCEDURE ORDERABLES Shruthi brett Result Performing Organization Address City/State/[facility] Co de Phone Number [facility] [address] [facility] [address] [address] documented in this encounter Visit Diagnoses Not on filedocumented in this encounter Care Teams Vessel Scrapper Relationship Specialty Start Date End Date Saurav Martin MD [address] [facility] [address] [place] [address] PCP - General 09/22/10 documented as of this encounter
--- OUTSIDE RECORDS SUMMARY | 2025-08-15 09:41 | XMS_ITS | Clinical Summary ---
Author Organization [facility] Address [address] [facility] [address] [place] [address] Phone Care Team Providers Care Rat Farmer Name Role Phone Saurav Martin MD Primary Care Provider + [phone] Allergies No known active allergies Medications * [...] tendonitis 07/22/2012 GERD (gastroesophageal reflux disease) 1 Encounters Date Type Department Care Team Description 06/28/2025 3:15 PM EDT Office Visit [facility] Sleep Medicine [address] [address] Rosic, Sterling, MOVIE ACTOR Obstructive sleep apnea (Primary Dx); Tiredness 06/28/2025 Orders Only [facility] Sleep Medicine [address] [address] Rosic, Sterling, MOVIE ACTOR Obstructive sleep apnea (Primary Dx) 06/25/2025 Travel 06/05/2025 3:05 PM EDT Ancillary Procedure [facility] [employer] [address] [employer] [place], [place] [id number] Jarrod Celeste MD S/P total knee arthroplasty, right 06/05/2025 2:30 PM EDT Office Visit [facility] [employer] [address] [employer] [place], [place] [id number] Jarrod Celeste MD S/P total knee arthroplasty, right (Primary Dx) 06/03/2025 Travel from Last 3 Months Immunizations Immunization Administration Dates Next Due Influenza [...] Service: Endoscopy COLONOSCOPY 01/05/2018 N/A Surgeon: Jack Masocrro MD; Location: [facility]; Service: Endoscopy JOINT [...] Comments Father Simba Mares Maternal Aunt 1 Sharri Klein Maternal Aunt 2 Alive Maternal Aunt 3 Alive Maternal Aunt 4 Alive Mother Monserrat Klein Paternal Aunt Anika Mares Paternal Uncle Ross Mares Sister Maria D Hernandez Social History Tobacco Use Types Packs/Day Years Used Date Smoking Tobacco: Former Cigarettes Q uit: 11/22/1986 Smokeless Tobacco: Never Tobacco Cessation:Counseling Given: Not [...] 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 N [...] EST Inhaled Oxygen Concentration - - Weight 79.8 kg (176 lb) 06/05/2025 2:56 PM EDT Height 165.1 cm (5' 5 ) 06/05/2025 2:56 PM EDT Body Mass Index 29.29 06/05/2025 2:56 PM EDT Plan of Treatment Upcoming Encounters Date Type Department Care Team (Late st Contact Info) Description 07/11/2026 3:15 PM EDT Office Visit [facility] [place] [address] [place] [address] 2nd [place] [address] Sterling Moya, MOVIE ACTOR [address] [place] [address] Health Maintenance Due Date Last Done Comments Hepatitis B Vaccine (1 of 3 - 19+ 3-dose series) 1985 Cologuard 2011 FIT 2011 Sigmoidoscopy 2011 Virtual Colonography 2011 Pneumococcal Vaccine 50+ (1 of 1 - PCV) 2016 Zoster (1 of 2) 2016 DTaP/TDaP/Td (2 - Td or Tdap) 10/16/2024 10/16/2014 COVID-19 Vaccine ( season) 2025 05/12/2022, 02/20/2021, 01/30/2021 Influenza Vaccine (#1) 2025 , 09/05/2023, 09/26/2020, Additional history exists Annual Wellness Exam 01/01/2026 01/01/2025, 10/15/2020, 08/15/2014 Breast Cancer Screening 01/17/2027 01/17/20, 01/03/2024, 01/17/2021, Additional history exists Pap Smear 02/14/2028 02/13/2025, 01/20, 01/17/2016, Additional history exists Cervical Cancer Screening 02/13/2030 HPV/Pap Cotest 02/13/2030 02/13/2025 Colon Cancer Screening 04/02/2031 Colonoscopy 04/02/2031 04/03/2024, 01/05/2018 Meningococcal B Vaccine Aged Out No l onger eligible based on patient's age to complete this topic Goals Goal Patient Goal Type Associated Problems Recent Progress Patient-Stated? Author Maintain a healthy diet, exercise regularly and maintain an ideal body weight General No Genoveva Moore RMA Stay Tobacco Free Lifestyle No Genoveva Moore RMA Procedures Procedure Name Priority Date/Time Associated Diagnosis Comments XR KNEE RIGHT AP LATERAL AND SUNRISE STANDING Routine 06/05/2025 3:10 PM EDT S/P total knee arthroplasty, right BALLOON SANDER CYTOLOGY REQUEST (PAP ONLY) Routine 02/13/2025 11:31 [...] Recently Relevant to Health Maintenance Results * XR KNEE RIGHT AP LATERAL AND SUNRISE STANDING (06/05/2025 3:10 PM EDT) Narrative GenericuserSheila - 06/05/2025 3:10 PM EDT Please see physician's note from office encounter for x-ray imaging result us Jarrod Celeste MD IMG DIAGNOSTIC IMAGI NG ORDERABLES Final Result * BALLOON SANDER CYTOLOGY REQUEST (PAP ONLY) (02/13/2025 11:31 AM EDT) CASE REPORT Gynecologic Cytology Report Case: [id number] Authorizing Provider: Saurav Van MD Collected: 02/13/2025 1131 [facility] Edg Received: 02/13/2025 1131 First Screen: Kati Julien CT Specimen: LIQUID-BASED PAP - CERVICAL/ENDOCERV ICAL, Cervix, Endocervical 02/15/2025 10:32 AM EDT [facility] PAP FINAL DIAGNOSIS Negative for intraepithelial lesion or malignancy 02/15/2025 10:32 AM EDT [facility] at 1032 EDT MICROSCOPIC DESCRIPTION Microscopic examination is performed and the findings corroborate the diagnosis. 02/15/2025 10:32 AM EDT [facility] PAP SMEAR ADEQUACY Satisfactory for evaluation 02/15/2025 10:32 AM EDT [facility] ENDOCERVICAL T-ZONE Transformation Zone Absent. This is not unusual in a post-menopausal woman. 02/15/2025 10:32 AM EDT [facility] EMBEDDED IMAGES 10:32 AM EDT [facility] PAP DISCLAIMER The Pap Smear is a screening test that aids in the detection of cervical cancer and cancer precursors. Both false positive and false negative results can occur. The test should be used at regular intervals, and positive results should be confirmed before definitive therapy. Processed using the ThinPrep Mechanical Sound Technician Automated cytology screening device (PingStamp). 02/15/2025 10:32 AM EDT [facility] Thin Prep ENDOCERVICAL STRUCTURE / Unknown 02/13/2025 11:31 AM EDT 02/13/2025 11:31 AM EDT us Saurav Van MD CYTOLOGY [place] [address] * MM MAMMO DIGITAL CAROL SCREEN BILAT (01/17/2025 12:51 PM EST) Anatomical Region Laterality Modality Breast Bilateral Mammography 01/17/2025 12:5 1 PM EST Impressions 01/17/2025 4:14 PM EST Negative ([id number]-[id number]-4) RECOMMENDATION: Routine Screening Mammogram in 1 Year Bilateral . . COMMENTS: Narrative 01/17/2025 4:14 PM EST EXAM: MM MAMMO DIGITAL CAROL SCREEN BILAT EXAM DATE: 01/17/2025 12:51 PM INDICATION: Z12.31-Encounter for screening mammogram for malignant neoplasm of hfzxvo-KVF-53-CM COMPARISON STUDIES: Compared with prior studies the most recent being 01/03/2024 MM MAMMO DIGITAL CAROL SCREEN BILAT at [facility] 01/17/2021 MM MAMMO DIGITAL SCREENING W CAD BILAT at [facility] 12/14/2019 MM MAMMO DIGITAL SCREENING W CAD BILAT at [facility] TISSUE DENSITY: The breasts are heterogeneously dense, which may obscure small masses. FINDINGS: No mammographic evidence of malignancy. . Procedure Note Jolie Camacho MD - 01/17/2025 EXAM: MM MAMMO DIGITAL CAROL SCREEN BILAT EXAM DATE: 01/17/2025 12:51 PM INDICATION: Z12.31-Encounter for screening mammogram for malignantneoplasm of ucjtir-PAC-01-CM COMPARISON STUDIES: Compared with prior studies the most recent being 01/03/2024 MM MAMMO DIGITAL CAROL SCREEN BILAT at [facility] 01/17/2021 MM MAMMO DIGITAL SCREENING W CAD BILAT at [facility] 12/14/2019 MM MAMMO DIGITAL SCREENING W CAD BILAT at [facility] TISSUE DENSITY: The breasts are heterogeneously dense, which may obscuresmall masses. FINDINGS: No mammographic evidence of malignancy. . IMPRESSION: Negative ([id number]-[id number]-9) RECOMMENDATION: Routine Screening Mammogram in 1 Year [...] polyps Staff Staff Role Chelsi Charles RN Reclaimer Ruddy Cadet DO Performing Provider AYDEE Myrick [...] Most Recently Relevant to Health Maintenance Insurance * Guarantor: Anika Gilliam Account Type Relation to Patient Date of Phone Billing Address Personal/Family Self 1965 [address] [place] [address] [facility] * Guarantor: Anika Gilliam Account Type Relation to Patient Date of Phone Billing Address SEP Personal Family Account Self 1965 [address] [place] [address] ANTHEM PPO * Guarantor: Anika Gilliam Account Type Relation to Patient Date of Phone Billing Address [place] Personal Family Self 1965 [address] [place] [address] ANTHEM PPO ANTHEM PPO Care Teams Rat Farmer Relationship Specialty Start Date End Date Saurav Martin MD [address] [place] [address] PCP - General 09/22/10
--- OUTSIDE RECORDS SUMMARY | 2025-08-15 09:41 | XMS_ITS | Clinical Summary ---
Author Organization [facility] Address [address] [place] [address] Care Team Providers Care Shredded Filler Cigar Maker Machine Name Role Phone Saurav Martin MD Primary [...] PCV) 2016 Zoster-RZV(Shingrix) (1 of 2) 2016 Tetanus Vaccination (Every 1 0 Years) 10/16/2024 10/16/2014 Depression Screening 11/22/2024 COVID-19 Vaccine (1 - 2023-2 5 season) 2025 Influenza Vaccination (#1) 2025 Breast Cancer Screening 01/03/2026 01/03/20 24, 01/03/2024, 01/17/2021, Additional history exists Lipid Screening 12/15/2028 12/15/2023 Colonoscopy 04/03/2034 04/03/2024 Colorectal Cancer Screening 04/03/2034 Medical Devices Implanted Type Area Splitting Machine Tender Device Identifier Shelf Expiration Date Model / Serial / Lot Cement Bone Simplex Hv - [id number] Implanted:Qty: 1 on 06/08/2024 by Jarrod Celeste MD at [facility] Right: Knee [employer] 07/22/2025 [id number] / / [id number] Cruciate Retaining Sz7 - [id number] Implanted:Qty: 1 on 06/08/2024 by Jarrod Celeste MD at [facility] Right: Knee LOLY \T\ [employer] [id number] 03/21/2034 [id number] / / [id number] Attune Tib Base Affx Bear Sz 5 - [id number] Implanted:Qty: 1 on 06/08/2024 by Jarrod Celeste MD at [facility] Right: Knee [employer]Y \T\ [employer] [id number] 04/21/2034 [id number] / / [id number] Attune Patella Medialized Anatomic 38mm Cemented Aox - [id number] Implanted:Qty: 1 on 06/08/2024 by Jarrod Celeste MD at [facility] Right: Knee * J \T\ J DEPUY [id number] 02/19/2029 [id number] / / [id number] Tibial Insert Fixed Bearing Sz7 - [id number] Implanted:Qty: 1 on 06/08/2024 by Jarrod Celeste MD at [facility] Right: Knee [employer]Y \T\ [employer] [id number] 01/20/2032 [id number] / / [id number] - [id number] Implanted:Qty: 1 on 06/08/2024 by Jarrod Celeste MD at [facility] Right: Knee OLLY \T\ [employer] [id number] / / Procedures Procedure Name Priority Date/Time Associated Diagnosis Comments MSK OUTCOME SCORES Routine 06/10/2025 10:49 AM EDT from Last 3 Months Results * MSK OUTCOME SCORES (06/10/2025 10:49 AM EDT) 06/10/2025 10:4 9 AM EDT us External Provider RESULTABLE ONLY ORDERS Final R esult [facility] [address] [place] [address], [facility] from Last 3 Months Insurance ANTH Member Subscriber Plan / Payer (Ef fective 2023-Present) Name:Anika Rock Relation to Subscriber:Self Name:Anika Rock Payer ID:[id number] (NAIC) Type:PPO Address: [facility] [address] [place] [id number] Care Teams Shredded Filler Cigar Maker Machine Relationship Specialty Start Date End Date Saurav Martin MD [address] [address] PCP - General Internal Medicine 06/08/24
== END 2025-08-14 23:59 ==
LOC: LAB.DROPOF 08-15 09:30
PROVIDERS: PCP Nurse Practitioner; Visit Provider Nurse Practitioner
DX: E78.5 Hyperlipidemia, unspecified (principal); E66.9 Obesity, unspecified; Z11.59 Encounter for screening for other viral diseases
CPT/HCPCS: 80053; 80061; 85025; 86803; 87340; 87389

== ENCOUNTER 2025-11-13 09:13 | Outpatient (CLI) | payer BC, SELFPAY ==
--- OUTSIDE RECORDS SUMMARY | 2024-06-24 04:00 | XMS_ITS ---
Author Organization [facility] Address [address] [place] [address] Care Team Providers Care Pediatric Nephrologist Name Role Phone Migration, Provider Unavailable Unavailable Allergies Allergen (clinical drug ingredient) Drug/Non Drug Allergy documented on EMR Reaction Allergy Type Onset Date Status Medications: NO KNOWN ALLERGIES (uncoded) Unspecified Allergy Active Medications Medication SIG (Take, Route, Frequency, Duration) Notes Start Date End Date Status Pantoprazole Sodium 1 tablet oral QD Active Estradiol-Norethindrone Acet 0.5 tablet oral QD 05/13/2022 Active Social History Tobacco Use: Social History Observation Description Date Smoking Status WARNING: Information temporarily unavailable Social History Drugs/Alcohol: Social Info Question Answer Notes Alcohol Screen Did you have a drink containing alcohol in the past year? Current some day 1 per week Household: Social Info Question Answer Notes Household Marital status: Tobacco Use: Social Info Question Answer Notes Tobacco Control (Standard) Tobacco use: Never Additional Details Category Social Info Options Details Miscellaneous: Exercise: Minimal Amoun t of Exercise (Once weekly or less) Travel outside of the [place]: Travel History: Uses seat belts Encounters Encounter Location Date Provider Diagnosis [facility] [address] [place] [address] 06/24/2024 Provider Migration Plan Of Treatment No Information Progress Notes * Anika GILLIAMDOB:[birth year] (60 yo F)Acc No.[id number]:06/24/2024 Patient: Debbi POON Anika BRIAN :1965 A ge:58 Y S ex:Female [place] [place], [address] Subjective: * Chief Complaints: * Medical History: 7 [place]: Bone Density/DEXA Scan - Yes 2017 WNL 7 [place]: Sexually active - Yes 7 [place]: Last Pap Smear Dec 2015 7 [place]: Self breast exam- yes 7 [place]: Dairy Product Use - Yes 7 [place]: Mammogram Dec 2015 < 20% Lifetime Risk of Breast Cancer *PS - POS GERD Anxiety * 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 * OB History: P regnancy History (GPA) F ull Term 0 , P remature 0 , A B. Induced 0 , A B. Spontaneous 0 , E ctopics 0 , M ultiple Births 0 , L iving 0 . G P P tadeo: 0 . * Surgical History: Knee surgery 2000- left knee * Family History: F amily History Verified.. Aunt: Breast Cancer, family HX, Age of Onset: 50, Father: Diabetes Mellitus, Type Unspecified, Age of Onset: 40, Sister: Diabetes Mellitus, Type Unspecified, Age of Onset: 40. * Social History: T obacco Use: T obacco Control (Standard) T obacco use: N ever. D rugs/Alcohol: A lcohol Screen D id you have a drink containing alcohol in the past year? C urrent some day 1 per week. M iscellaneous: E xercise: Minimal Amount of Exercise (Once weekly or less). Travel outside of the [place]: Travel History: Uses seat belts. H ousehold: H ousehold M arital status: . * Medications: T akingEstradiol-Norethindrone Acet 0.5 tablet oral QD Pantoprazole Sodium 1 tablet oral QD Taking Estradiol-Norethindrone Acet 0.5 tablet oral QD Taking Pantoprazole Sodium 1 tablet oral QD * Allergies: M edications: NO KNOWN ALLERGIES: Unspecified - AllergyyesAllergies Verified. * * Date:
[2025-11-13 15:23] LABS: Alanine Aminotransferase 25 U/L (12-78); Albumin Level 5.0 g/dl (3.5-5.0); Albumin/Globulin Ratio 1.6 (1.1-1.8); Alkaline Phosphatase 124 U/L (38-126); Anion Gap 10.5 mEq/L (5-15); Aspartate Amino Transferase 32 U/L (14-36); Bilirubin,Total 1.0 mg/dl (0.2-1.3); Blood Urea Nitrogen 10 mg/dl (7-17); Calcium 9.8 mg/dl (8.4-10.2); Carbon Dioxide 27 mmol/L (22.0-30.0); Chloride 103 mmol/L (98-107); Creatinine,Serum 0.80 mg/dl (0.52-1.04); Estimated Glomerular Filt Rate 73 ml/min (>60); GFR (African American) 89 ML/MIN (>60); Globulin 3.1 g/dL (1.3-3.2); Glucose 71 mg/dl (74-100); Potassium 4.5 mmoL/L (3.5-5.1); Sodium 136 mmol/L (136-145); Total Protein,Serum 8.1 g/dl (6.3-8.2)
[2025-11-13 17:30] LABS: Thyroid Stimulating Hormone 1.78 uIU/mL (0.465-4.68)
[2025-11-13 17:49] LABS: Vitamin B12 658 pg/mL (239-931)
--- OUTSIDE RECORDS SUMMARY | 2025-11-16 09:18 | XMS_ITS | Clinical Summary ---
Author Organization [facility] Address [address] [place] [address] Care Team Providers Care Plycor Operator Name Role Phone Saurav Martin MD Primary [...] Years Used Date Smoking Tobacco: Former Cigarettes 0 Q uit: 2001 Smokeless Tobacco: Never Tobacco [...] Last Done Comments Cologuard 1965 FIT 1965 Pneumococcal Vaccine: 50+ Ye ars (1 of 2 - PCV) 1985 Cervical Cancer Screening 1987 Zoster-RZV(Shingrix) (1 of 2) 2016 Tetanus Vaccination (Every 1 0 Years) 10/16/2024 10/16/2014 Depression Screening 11/22/2024 COVID-19 Vaccine (1 - 2024-2 6 season) 2025 Influenza Vaccination (#1) 2025 Breast Cancer Screening 01/03/2026 01/03/20 24, 01/03/2024, 01/17/2021, Additional history exists Lipid Screening 12/15/2028 12/15/2023 Colonoscopy 04/03/2034 04/03/2024 Colorectal Cancer Screening 04/03/2034 Medical Devices Implanted Type Area Mechanical Equipment Sales Engineer Device Identifier Shelf Expiration Date Model / Serial / Lot Cement Bone Simplex Hv - [id number] Implanted:Qty: 1 on 06/08/2024 by Jarrod Celeste MD at [facility] Right: Knee [employer] 07/22/2025 [id number] / / [id number] Cruciate Retaining Sz7 - [id number] Implanted:Qty: 1 on 06/08/2024 by Jarrod Celeste MD at [facility] Right: Knee LOLY \T\ [employer] [id number] 03/21/2034 [id number] / / [id number] Attune Tib Base Affx Bear Sz 5 - [id number] Implanted:Qty: 1 on 06/08/2024 by Jarrod Celeste MD at [facility] Right: Knee LOLY \T\ [employer] [id number] 04/21/2034 [id number] / / [id number] Attune Patella Medialized Anatomic 38mm Cemented Aox - [id number] Implanted:Qty: 1 on 06/08/2024 by Jarrod Celeste MD at [facility] Right: Knee * J \T\ J DEPUY [id number] 02/19/2029 [id number] / / [id number] Tibial Insert Fixed Bearing Sz7 - [id number] Implanted:Qty: 1 on 06/08/2024 by Jarrod Celeste MD at [facility] Right: Knee LOLY \T\ [employer] [id number] 01/20/2032 [id number] / / [id number] - [id number] Implanted:Qty: 1 on 06/08/2024 by Jarrod Celeste MD at [facility] Right: Knee LOLY \T\ [employer] [id number] / / Insurance SOHAN Care Teams Plycor Operator Relationship Specialty Start Date End Date Saurav Martin MD [address] [place] [address] PCP - General Internal Medicine 06/08/24
--- OUTSIDE RECORDS SUMMARY | 2025-11-16 09:18 | XMS_ITS | Patient Health Record ---
Author Organization [facility] Address [address] [facility] [address] [place] [address] Care Team Providers Care Long Line Teamster Name Role Phone Migration, Provider Unavailable Unavailable [...] weekly or less) Travel outside of the [place]: Travel History: Uses seat belts Plan Of Treatment No Information Medical (General) History Medical History History ICD Code 7 [place]: Bone Density/DEXA Scan - Yes 20 17 WNL 7 [place]: Sexually active - Yes 7 [place]: Last Pap Smear Dec 2015 7 [place]: Self breast exam- yes 7 [place]: Dairy Product Use - Yes 7 [place]: Mammogram Dec 2015 < 20% Lifetime Risk of Breast Cancer *PS - POS GERD Anxiety Surgical History Surgery Date(Month/Year) Knee surgery 2000- left knee
--- OUTSIDE RECORDS SUMMARY | 2025-11-16 09:18 | XMS_ITS | Encounter Summary ---
Author Organization [facility] Address [address] [place] [address] Care Team Providers Care Paraprofessional Education Assistant Name Role Phone Saurav Martin MD Primary Care Provider [phone] Encounter Details Date Type Department Care Team (Late st Contact Info) Description 06/02/2024 Preop Surgical Orders Community [facility] Ordering Department [address] [place] [address] Jarrod Celeste MD [address] [place] [address] [address] [place] [address] Social History Tobacco Use Types Packs/Day Years Used Date Smoking Tobacco: Former Cigarettes 0 Q uit: 2001 Smokeless Tobacco: Never Alcohol [...] on filedocumented in this encounter Care Teams Paraprofessional Education Assistant Relationship Specialty Start Date End Date Saurav Martin MD [address] [place] [address] PCP - General Internal Medicine 06/08/24 documented as of this encounter
--- OUTSIDE RECORDS SUMMARY | 2025-11-16 09:18 | XMS_ITS | Clinical Summary ---
Author Organization [facility] Address [address] [facility] [address] 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 Not on file N [...] Care Team (Late st Contact Info) Description 01/02/2026 2:00 PM EST Office Visit [facility] [address] [facility] [address] [place] [address] Saurav Martin MD [address] [facility] [address] [place] [address] 01/18/2026 12:45 PM EST Appointment [facility] Mammography [address] [place] [phone] Referral, Self 07/11/2026 3:15 PM EDT Office Visit [facility] [place] [address] [facility] 2nd [place] [address] Sterling Moya, HAND DRAWER IN HELPER [address] [place] [address] Health Maintenance Due Date Last Done Comments Hepatitis B Vaccine (1 of 3 - 19+ 3-dose series) 1985 Cologuard 2011 FIT 2011 Sigmoidoscopy 2011 Virtual Colonography 2011 Pneumococcal Vaccine 50+ (1 of 1 - PCV) 2016 Zoster (1 of 2) 2016 DTaP/TDaP/Td (2 - Td or Tdap) 10/16/2024 10/16/2014 COVID-19 Vaccine ( - season) 2025 05/12/2022, 02/20/2021, 01/30/2021 Influenza Vaccine [...] Procedure Name Priority Date/Time Associated Diagnosis Comments ACCESS TECH CYTOLOGY REQUEST (PAP ONLY) Routine 02/13/2025 11:31 [...] Recently Relevant to Health Maintenance Results * ACCESS TECH CYTOLOGY REQUEST (PAP ONLY) (02/13/2025 11:31 AM EDT) CASE REPORT Gynecologic Cytology Report Case: [id number] Authorizing Provider: Saurav Van MD Collected: 02/13/2025 1131 Ordering Location: [facility] Edg Received: 02/13/2025 1131 First Screen: Ktai Julien CT Specimen: LIQUID-BASED PAP - CERVICAL/ENDOCERV ICAL, Cervix, Endocervical 02/15/2025 10:[address] [facility] PAP FINAL DIAGNOSIS Negative for intraepithelial lesion or malignancy 02/15/2025 10:[address] [facility] at 1032 EDT MICROSCOPIC DESCRIPTION Microscopic examination is performed and the findings corroborate the diagnosis. 02/15/2025 10:[address] [facility] PAP SMEAR ADEQUACY Satisfactory for evaluation 02/15/2025 10:[address] [facility] ENDOCERVICAL T-ZONE Transformation Zone Absent. This is not unusual in a post-menopausal woman. 02/15/2025 10:32 AM EDT [facility] EMBEDDED IMAGES 10:[address] [facility] PAP DISCLAIMER The Pap Smear is a screening test that aids in the detection of cervical cancer and cancer precursors. Both false positive and false negative results can occur. The test should be used at regular intervals, and positive results should be confirmed before definitive therapy. Processed using the ThinPrep Dye Beck Reel Operator Automated cytology screening device (Green [employer] Cool[employer]). 02/15/2025 10:[address] [facility] Thin Prep ENDOCERVICAL STRUCTURE / Unknown 02/13/2025 11:31 AM EDT 02/13/2025 11:31 AM EDT us Saurav Van MD CYTOLOGY ORDERABLES Final Resul t [facility] [address] [place] [phone] * MM MAMMO DIGITAL CAROL SCREEN BILAT (01/17/2025 12:51 PM EST) Anatomical Region Laterality Modality Breast Bilateral Mammography 01/17/2025 12:5 1 PM EST Impressions 01/17/2025 4:14 PM EST Negative ([id number]-7) RECOMMENDATION: Routine Screening Mammogram in 1 Year Bilateral . . COMMENTS: Narrative 01/17/2025 4:14 PM EST EXAM: MM MAMMO DIGITAL CAROL SCREEN BILAT EXAM DATE: 01/17/2025 12:51 PM INDICATION: Z12.31-Encounter for screening mammogram for malignant neoplasm of vqmbae-BZY-89-CM COMPARISON STUDIES: Compared with prior studies the most recent being 01/03/2024 MM MAMMO DIGITAL CAROL SCREEN BILAT at [facility] 01/17/2021 MM MAMMO DIGITAL SCREENING W CAD BILAT at [facility] 12/14/2019 MM MAMMO DIGITAL SCREENING W CAD BILAT at [facility] TISSUE DENSITY: The breasts are heterogeneously dense, which may obscure small masses. FINDINGS: No mammographic evidence of malignancy. . Procedure Note Jolie Camacho MD - 01/17/2025 EXAM: MM MAMMO DIGITAL CAROL SCREEN BILAT EXAM DATE: 01/17/2025 12:51 PM INDICATION: Z12.31-Encounter for screening mammogram for malignantneoplasm of jueivc-PAK-44-CM COMPARISON STUDIES: Compared with prior studies the most recent being 01/03/2024 MM MAMMO DIGITAL CAROL SCREEN BILAT at [facility] 01/17/2021 MM MAMMO DIGITAL SCREENING W CAD BILAT at [facility] 12/14/2019 MM MAMMO DIGITAL SCREENING W CAD BILAT at [facility] TISSUE DENSITY: The breasts are heterogeneously dense, which may obscuresmall masses. FINDINGS: No mammographic evidence of malignancy. . IMPRESSION: Negative (AHN-Ssrutxnq-1) RECOMMENDATION: Routine Screening Mammogram in 1 Year Bilateral . . COMMENTS: Saurav Van MD [facility] MAMMOGRAPHY ORDERABLES Shruthi l Result * COLONOSCOPY [...] polyps Staff Staff Role Chelsi Charles RN Hazardous Material Specialist Ruddy Cadet DO Performing Provider AYDEE Myrick [...] Insurance ANTHEM PPO ANTHEM PPO ANTHEM PPO PPO Care Teams Childcare Center Administrator Relationship Specialty Start Date End Date Saurav Martin MD [address] [place] [address] PCP - General 09/22/10
--- OUTSIDE RECORDS SUMMARY | 2025-11-16 09:18 | XMS_ITS | Encounter Summary ---
Author Organization [place] [address] Care Team Providers Care International Editorial Producer Name Role Phone Saurav Martin MD Primary Care Provider + [phone] Encounter Details Date Type Department Care Team (Late st Contact Info) Description 10/25/2012 Orders Only [facility] [address] [facility] [address] [place] [address] Roby Benson MD Social History Tobacco Use [...] 01/02/2026 2:00 PM EST Office Visit [facility] [address] [facility] [address] [place] [address] Saurav Martin MD [address] [facility] [address] [place] [address] 01/18/2026 12:45 PM EST Appointment [facility] Mammography [address] [place] [phone] Referral, Self 07/11/2026 3:15 PM EDT Office Visit [facility] [place] [address] [place] [address] 2nd [place] [address] Sterling Moya, GIVER [address] [place] [address] documented as of this encounter Procedures Procedure [...] Benson M.D. Referring Provider: Saurav Martin MD Roby Benson MD GI PROCEDURE ORDERABLES Shruthi l Result [facility] [address] [facility] [address] [address] documented in this encounter Visit Diagnoses Not on filedocumented in this encounter Care Teams International Editorial Producer Relationship Specialty Start Date End Date Saurav Martin MD [address] [address] [place] [address] PCP - General 09/22/10 documented as of this encounter
== END 2025-11-13 23:59 | disposition home or self-care (01) ==
LOC: LAB.DROPOF 11-16 09:14
PROVIDERS: PCP Nurse Practitioner; Visit Provider Nurse Practitioner
DX: E78.5 Hyperlipidemia, unspecified (principal); E66.9 Obesity, unspecified; G47.33 Obstructive sleep apnea (adult) (pediatric); K21.9 Gastro-esophageal reflux disease without esophagitis; R79.89 Other specified abnormal findings of blood chemistry
CPT/HCPCS: 80053; 82607; 84443